=== PATIENT | male | born 1945 | race Caucasian/White ===

== ENCOUNTER 2021-03-18 06:57 | Inpatient (IN) | payer MEDICARE ==
[~2021-03-18] VITALS: Ht 175.3 cm; Wt 81.6 kg
[2021-03-18 07:40] LABS: HEMOGLOBIN 13.6 gm/dl (14.0-17.5); RED BLOOD COUNT 3.84 M/UL (4.20-5.50); WHITE BLOOD COUNT 16.4 K/UL (4.5-11.0)
[2021-03-18] MEDS ORDERED: NEURONTIN300 MG PO (16:41)
[2021-03-18] MEDS ORDERED: FLOMAX 0.4 MG0.4 MG PO (16:42)
[2021-03-18] MEDS ORDERED: TENORMIN25 MG PO (16:42)
[2021-03-18] MEDS ORDERED: CYMBALTA30 MG PO (16:42)
[2021-03-18] MEDS ORDERED: OMEPRAZOLE20 MG PO (16:43)
[2021-03-18] MEDS ORDERED: INDOCIN CAP 2525 MG PO (16:43)
[2021-03-18] MEDS ORDERED: NORVASC10 MG PO (16:44)
[2021-03-18] MEDS ORDERED: CYCLOBENZAPRINE10 MG PO (16:44)
[2021-03-18] MEDS ORDERED: LIPITOR40 MG PO (16:44)
[2021-03-18] MEDS ORDERED: DOCUSATE SODIU100 MG PO (16:44)
[2021-03-18] MEDS ORDERED: CHLORTRIMETON 44 MG PO (16:45)
[2021-03-18] MEDS ORDERED: ZYLOPRIM 300 M300 MG PO (16:45)
[2021-03-18] MEDS ORDERED: ZESTRIL 40 MG T40 MG PO (16:46)
[2021-03-18] MEDS ORDERED: TRAZODONE HCL100 MG PO (16:46)
[2021-03-19 05:03] LABS: RED BLOOD COUNT 3.17 M/UL (4.20-5.50); WHITE BLOOD COUNT 14.7 K/UL (4.5-11.0)
--- NOTE | 2021-03-20 04:20 | NUR ---
susan in pharmacy notified that diamox isn't available to administer 0400 dose, susan called back and said that due to generator tesing that he is still delayed in pulling med from machine but would just as soon as he could.
[2021-03-20 05:22] LABS: BUN/CREATININE RATIO 27 (0-10)
[2021-03-21] MEDS ORDERED: LANTUS INS100 UTS/M1 SC (06:43)
[2021-03-21] MEDS ORDERED: SYMBICORT 160-1 INHA INH (06:48)
[2021-03-21] MEDS ORDERED: VENTOLIN HFA 66.7 GM INH (06:49)
[2021-03-26 09:25] LABS: BUN/CREATININE RATIO 9 (0-10)
[2021-03-28] MEDS ORDERED: ATIVAN1 MG PO ×2 (11:45→11:47)
[2021-03-28] MEDS ORDERED: PERCOCET 5/325 T1 EA PO ×2 (11:45→11:47)
[2021-03-28] MEDS ORDERED: GABAPENTIN300 MG PO (11:45)
[2021-03-28] MEDS ORDERED: SPIRIVA HANDIH18 MCG INH (11:57)
[2021-03-28] MEDS ORDERED: MIRALAX17 GM PO (11:57)
== END 2021-03-28 14:18 | DRG 871 ==
LOC: ER1 06:57 → MED SURG 4 12:13 → CDU 12:13 → CCU 12:13 → MED SURG 4 03-19 15:54
PROVIDERS: Family Medicine; Physician Assistant; ADMIT Internal Medicine
PROC: B24BZZ4 Ultrasonography of Heart with Aorta, Transesophageal (ICD-10-PCS; principal; 2021-03-19)
DX: A41.89 Other specified sepsis (principal); R65.21 Severe sepsis with septic shock; J69.0 Pneumonitis due to inhalation of food and vomit; J96.01 Acute respiratory failure with hypoxia; Z66 Do not resuscitate; Z51.5 Encounter for palliative care; Z20.822 Contact with and (suspected) exposure to COVID-19; I46.2 Cardiac arrest due to underlying cardiac condition; J15.212 Pneumonia due to Methicillin resistant Staphylococcus aureus; S22.31XA Fracture of one rib, right side, initial encounter for closed fracture; N30.00 Acute cystitis without hematuria; J44.0 Chronic obstructive pulmonary disease with (acute) lower respiratory infection; J44.1 Chronic obstructive pulmonary disease with (acute) exacerbation; N17.9 Acute kidney failure, unspecified; C34.12 Malignant neoplasm of upper lobe, left bronchus or lung; I47.1 Supraventricular tachycardia; G93.40 Encephalopathy, unspecified; K21.9 Gastro-esophageal reflux disease without esophagitis; E11.40 Type 2 diabetes mellitus with diabetic neuropathy, unspecified; K59.00 Constipation, unspecified; E86.0 Dehydration; K80.20 Calculus of gallbladder without cholecystitis without obstruction; W18.30XA Fall on same level, unspecified, initial encounter; E78.5 Hyperlipidemia, unspecified; A41.02 Sepsis due to Methicillin resistant Staphylococcus aureus; G93.89 Other specified disorders of brain; N18.9 Chronic kidney disease, unspecified; F03.90 Unspecified dementia, unspecified severity, without behavioral disturbance, psychotic disturbance, mood disturbance, and anxiety; E87.6 Hypokalemia; I71.4 Abdominal aortic aneurysm, without rupture; S02.2XXA Fracture of nasal bones, initial encounter for closed fracture; E11.22 Type 2 diabetes mellitus with diabetic chronic kidney disease; Z79.4 Long term (current) use of insulin; Z85.46 Personal history of malignant neoplasm of prostate; Z85.038 Personal history of other malignant neoplasm of large intestine; Z90.49 Acquired absence of other specified parts of digestive tract; Z83.6 Family history of other diseases of the respiratory system; Z80.9 Family history of malignant neoplasm, unspecified
CPT/HCPCS: ECHO; 0240U; 36415; 36600; 51702; 70450; 70486; 71045; 71250; 72125; 80048; 80053; 80202; 81001; 82270; 82550; 82553; 82803; 82962; 83605; 83735; 83874; 84100; 84484; 85025; 87040; 87077; 87086; 87186; 93005; 93306; 94760; 96374; 99285; C9113; J0133; J0461; J1120; J2543; J3370; J3480; J7030; J7070